=== PATIENT | male | born 1990 | race Caucasian/White ===

== ENCOUNTER 2021-08-14 14:40 | Emergency (ER) | payer OTHER ==
[~2021-08-14 14:40] MED LIST: IBUPROFEN800 MG PO; PERCOCET 10/321 EACH PO
[2021-08-14 16:07] LABS: BASOPHIL 0.5 % (0-2); HCT 41.4 % (42.0-52.0); HGB 14.1 g/dl (13.2-18.0); LYMPHOCYTE 11.3 % (15-48); MCH 33.1 pg (25.0-31.0); MCHC 34.1 g/dL (32.0-36.0); MCV 97.2 fL (78.0-100.0); MONOCYTE 12.7 % (0-12); MPV 12.2 fL (6.0-9.5); NEUTROPHIL 73.4 % (41-80); NRBC 0; PLT 134 K/uL (150-400); RBC 4.26 M/uL (4.70-6.00); RDW 12.8 % (11.5-14.0); WBC 7.4 K/uL (4.0-10.5)
[2021-08-14 16:26] LABS: BILIRUBIN - TOTAL 0.7 mg/dL (0.2-1.0); BUN/CREAT RATIO (CALC) 7.4 RATIO; CREATININE 0.95 mg/dL (0.67-1.17); GLOBULIN (CALCULATION) 3.2 g/dL; POTASSIUM 3.2 mmol/L (3.5-5.1); TOTAL PROTEIN 7.2 g/dL (6.4-8.2)
[2021-08-14 16:31] LABS: LACTIC ACID 1.4 mmol/L (0.4-1.9)
[2021-08-14 16:54] LABS: INFLUENZA A NAA NEGATIVE (NEGATIVE)
[2021-08-14 17:00] LABS: CORONAVIRUS 2019 SARS-COV-2 POSITIVE (NEGATIVE)
[2021-08-14] MEDS ORDERED: HYDROCODONE-CH473 ML PO (20:25)
[2021-08-14] MEDS ORDERED: IBUPROFEN800 MG PO (20:25)
[2021-08-14] MEDS ORDERED: PULMICORT FLE180 MCG INH (20:25)
[2021-08-14] MEDS ORDERED: VENTOLIN HFA IN18 GM INH (20:25)
[2021-08-14 21:18] LABS: BILIRUBIN NEGATIVE (NEGATIVE); BLOOD NEGATIVE Ery/uL (NEGATIVE); CLARITY CLEAR (CLEAR); COLOR YELLOW (YELLOW); GLUCOSE (U) NORMAL (NORMAL); LEUKOCYTES NEGATIVE Leu/uL (NEGATIVE); NITRITE NEGATIVE (NEGATIVE); PROTEIN NEGATIVE (NEGATIVE); SPECIFIC GRAVITY <=1.005 (1.001-1.030); UROBILINOGEN 0.2 mg/dL (0.2-1.0)
[2021-08-14 21:27] LABS: SQUAMOUS EPITHELIAL CELLS RARE
== END 2021-08-14 21:03 | disposition home or self-care (01) ==
LOC: FER 14:40
PROVIDERS: Physician Assistant
DX: U07.1 COVID-19 (principal); J12.82 Pneumonia due to coronavirus disease 2019; F17.210 Nicotine dependence, cigarettes, uncomplicated
CPT/HCPCS: 36415; 71045; 80053; 81001; 83605; 84145; 85025; 85379; 94640; 94664; J7030; U0002